=== PATIENT | female | born 1945 | race African-American/Black ===

== ENCOUNTER → 2018-10-11 | Outpatient (CLI) | payer MEDICARE, MEDICAID ==
[~2018-10-11] MED LIST: ACET-2178 PO; CHOL400T15 MT; IBUP-2028 PO; LISI-604 PO; MECL-109 PO
== END | disposition home or self-care (01) ==
LOC: US 08:54
PROVIDERS: ATTEND Internal Medicine Gastroenterology
DX: K80.20 Calculus of gallbladder without cholecystitis without obstruction (principal)
CPT/HCPCS: 76700

== ENCOUNTER → 2018-10-27 | Outpatient (CLI) | payer MEDICARE, MEDICAID | END | disposition home or self-care (01) | LOC: CARD 09:17 | PROVIDERS: ATTEND General Practice | DX: Z01.818 Encounter for other preprocedural examination (principal) | CPT/HCPCS: 93005 ==

== ENCOUNTER → 2021-01-03 | Outpatient (CLI) | payer MEDICARE, MEDICAID ==
[~2021-01-03] MED LIST changes: -ACET-2178 PO; -LISI-604 PO; +LISI20TA31 PO; -MECL-109 PO; +MECL-159 PO; +TOPUD PO
== END | disposition home or self-care (01) ==
LOC: US 09:00
PROVIDERS: ATTEND Internal Medicine Gastroenterology
DX: K80.20 Calculus of gallbladder without cholecystitis without obstruction (principal); K74.60 Unspecified cirrhosis of liver
CPT/HCPCS: 76700

== ENCOUNTER 2023-02-11 16:10 | Emergency (ER) | payer MEDICARE, MEDICAID ==
[2023-02-11 17:29] VITALS: BP 94/39; PULSE 62; RESP 16; TEMP 98
[2023-02-11 17:53] LABS: HEMATOCRIT. 28.6 % (36.0-48.0); HEMOGLOBIN. 9.5 g/dL (12.0-16.0); MEAN CORPUSCULAR HEMOGLOBIN 30.1 pg (28.0-32.0); MEAN CORPUSCULAR VOLUME 90.4 fL (81.0-99.0); MEAN PLATELET VOLUME 10.2 fl (7.4-10.4); PLATELET 81 x1000/uL (130-400); RED BLOOD CELL COUNT 3.17 mill/uL (4.2-5.4); RED CELL DISTRIBUTION WIDTH 14.2 % (11.6-14.6)
[2023-02-11 18:13] LABS: CHLORIDE 114 mEq/L (98-107); PLATELET ESTIMATE DECREASED
[2023-02-11 18:21] LABS: ETHANOL BLOOD < 10 mg/dL (-10)
[2023-02-11 18:25] LABS: BG BASE EXCESS -3.2 mmol/L (-2.0-2.0); BG FRACTION INSPIRED OXYGEN 21; BG HCO3 ACT 21.5 mmol/L (22.0-26.0); BG METHEMOGLOBIN 0.2 % (0.0-1.5); BG OXYHEMOGLOBIN 95.8 % (94.0-97.0); BG PH 7.382 (7.350-7.450); BG PO2 88.5 mmHg (75.0-100.0); BG SAMPLE SITE RIGHT RADIAL; BG TOTAL HEMOGLOBIN 10.7 g/dL (12.0-18.0); BG VENT MODE ROOM AIR
== END 2023-02-11 20:05 | disposition home or self-care (01) ==
LOC: ER 16:10
DX: R53.1 Weakness (principal); I10 Essential (primary) hypertension; Z90.710 Acquired absence of both cervix and uterus; Z79.899 Other long term (current) drug therapy
CPT/HCPCS: 36415; 36600; 71045; 80053; 80307; 80320; 80329; 82140; 82375; 82805; 82962; 83880; 84443; 84484; 85025; 93005; 99285; G0480